=== PATIENT | male | born 1990 | race American Indian/Alaskan Native ===

== ENCOUNTER 2018-09-28 21:38 | Emergency (ER) | payer OTHER ==
--- NOTE | 2018-09-29 01:51 | XRay Report ---
PROCEDURE: XR HAND 3+V LT TECHNIQUE: Left hand radiographs, PA, lateral, and oblique views. HISTORY: thumb injury/pain COMPARISONS: None . FINDINGS: Fracture (s) and/or Dislocation(s): None . Alignment: Normal . Joint space(s): Normal . Soft tissues: Normal . Bone mineralization: Normal . Foreign bodies: None . IMPRESSION: Normal Examination . This document is electronically signed by Aspen Phipps DO., Sep 29 2018 01:49:58 AM ET
[2018-09-29 02:35] VITALS: BP 128/92
[2018-09-29] MEDS ORDERED: TYLENOL PO ONE (03:30)
[2018-09-29] MEDS ORDERED: TYLENOL ONE (03:32)
[2018-09-29] MEDS ORDERED: NORCO 5/325 PO ONE (05:24)
[2018-09-29] MEDS ORDERED: IBUPROFEN PO ONE (05:24)
[2018-09-29] MEDS ORDERED: ZOFRAN ODT PO ONE (05:24)
--- NOTE | 2018-09-29 05:54 | Emergency Department Report ---
ED Upper Extremity Inj HPI - General Chief Complaint: Extremity Injury, Upper Stated Complaint: THUMB INJURY Time Seen by Provider: 09/29/18 05:10 Source: patient Mode of arrival: Ambulatory Limitations: No Limitations - History of Present Illness Initial Comments: Patient is a 28-year-old AA male with no past medical history who presents to the ED with complaint of acute onset persistent severe left hand and thumb pain after the ball hit him on the left hand 2 days ago. Patient states that the pain has worsened in the last 12 hours. Patient denies headache, neck injury, back pain, chest pain, shortness of breath, change in vision, numbness and tingling of left hand or back pain. MD Complaint: Injury to:: hand (LEFT HAND), finger (Left thumb) -: Sudden, days(s) (2) Other Extremity Injury: Hand: Left (left hand and thumb) Other Injuries: none Handedness: right Place: home Severity scale (0 -10): 8 Improves With: none Worsens With: movement of extremity Context: direct blow Associated Symptoms: denies other symptoms. denies: weakness, numbness, neck pain, suspects foreign body, nausea/vomiting, heard/felt popping sensat Treatments Prior to Arrival: cold therapy - Related Data Previous Rx's Medication Instructions Recorded Last Taken Type Cyclobenzaprine [Flexeril] 10 mg PO Q8H PRN #15 tablet 09/29/18 Unknown Rx Ibuprofen [Motrin] 600 mg PO Q8H PRN #20 tablet 09/29/18 Unknown Rx Allergies Allergy/AdvReac Type Severity Reaction Status Date / Time No Known Allergies Allergy Verified 09/28/18 22:01 ED Review of Systems ROS: Stated complaint: THUMB INJURY Other details as noted in HPI Comment: All other systems reviewed and negative Constitutional: no symptoms reported, see HPI. denies: diaphoresis, fever, malaise, weakness Eyes: as per HPI. denies: eye pain, eye discharge, vision change ENT: as per HPI. denies: ear pain, throat pain, dental pain, hearing loss, epistaxis Respiratory: no symptoms reported, see HPI. denies: cough, shortness of breath, SOB with exertion, SOB at rest Cardiovascular: as per HPI. denies: chest pain, palpitations, dyspnea on exertion, orthopnea, edema, syncope Endocrine: no symptoms reported, see HPI. denies: excessive sweating, flushing, intolerance to cold, intolerance to heat, increased hunger, increased urine Gastrointestinal: as per HPI. denies: abdominal pain, nausea, vomiting, diarrhea, constipation, hematemesis Genitourinary: as per HPI. denies: urgency, dysuria, frequency, discharge Musculoskeletal: as per HPI, joint swelling (left thumb pain and mild swelling), arthralgia (left thumb pain). denies: back pain Skin: as per HPI. denies: rash, lesions, change in color, change in hair/nails Neurological: as per HPI. denies: headache, weakness, numbness, paresthesias, confusion, abnormal gait, vertigo Psychiatric: as per HPI Hematological/Lymphatic: as per HPI ED Past Medical Hx - Past Medical History Previous Medical History?: No - Surgical History Past Surgical History?: No - Social History Smoking Status: Current Every Day Smoker Substance Use Type: None - Medications Home Medications: Home Medications Medication Instructions Recorded Confirmed Last Taken Type Cyclobenzaprine [Flexeril] 10 mg PO Q8H PRN #15 tablet 09/29/18 Unknown Rx Ibuprofen [Motrin] 600 mg PO Q8H PRN #20 tablet 09/29/18 Unknown Rx ED Physical Exam - General Limitations: No Limitations General appearance: alert, in no apparent distress - Head Head exam: Present: atraumatic, normocephalic, normal inspection - Eye Eye exam: Present: normal appearance, PERRL, EOMI. Absent: scleral icterus, conjunctival injection, nystagmus, periorbital swelling, periorbital tenderness Pupils: Present: normal accommodation - ENT ENT exam: Present: normal exam, normal orophraynx, mucous membranes moist, TM's normal bilaterally, normal external ear exam - Neck Neck exam: Present: normal inspection, full ROM. Absent: tenderness - Respiratory Respiratory exam: Present: normal lung sounds bilaterally. Absent: respiratory distress, wheezes, rales, rhonchi, chest wall tenderness, accessory muscle use, decreased breath sounds, prolonged expiratory - Cardiovascular Cardiovascular Exam: Present: regular rate, normal rhythm, normal heart sounds. Absent: bradycardia, tachycardia, irregular rhythm - GI/Abdominal GI/Abdominal exam: Present: soft, normal bowel sounds. Absent: tenderness, guarding, rebound, rigid, hyperactive bowel sounds, hypoactive bowel sounds, organomegaly - Rectal Rectal exam: Present: deferred - Extremities Exam Extremities exam: Present: normal inspection, full ROM, tenderness (left thumb and hand tenderness), normal capillary refill. Absent: pedal edema, joint swelling, calf tenderness - Back Exam Back exam: Present: normal inspection, full ROM. Absent: tenderness, CVA tenderness (L), muscle spasm, paraspinal tenderness, vertebral tenderness - Neurological Exam Neurological exam: Present: alert, oriented X3, CN II-XII intact, normal gait, reflexes normal - Psychiatric Psychiatric exam: Present: normal affect - Skin Skin exam: Present: warm, dry, intact. Absent: cyanosis, diaphoretic, erythema, urticaria ED Course Vital Signs 09/28/18 09/29/18 22:03 02:34 Temperature 98.3 F 98.5 F Pulse Rate 80 68 Respiratory 18 18 Rate Blood Pressure 124/84 128/92 O2 Sat by Pulse 99 100 Oximetry - Reevaluation(s) Reevaluation #1: 09/29/18 06:01 Patient is alert and oriented 3 and he is not in distress. Left hand x-ray shows no acute fractures. The patient was treated with pain in the ED and on reevaluation, patient's pain is well controlled. Patient discharged home on pain medications and had his left hand splinted with a left thumb spica and Velcro splint. Patient discharged home on pain medications and advised to follow-up with his primary care physician in 5-7 days for reevaluation. Patient was advised to return to the ED immediately if symptoms get worse. ED Medical Decision Making - Radiology Data Radiology results: report reviewed, image reviewed Left hand x-ray shows no acute fractures or subluxation - Medical Decision Making Patient is alert and oriented 3 and he is not in distress. Left hand x-ray shows no acute fractures. The patient was treated with pain in the ED and on reevaluation, patient's pain is well controlled. Patient discharged home on pain medications and had his left hand splinted with a left thumb spica and Velcro splint. Patient discharged home on pain medications and advised to follow-up with his primary care physician in 5-7 days for reevaluation. Patient was advised to return to the ED immediately if symptoms get worse. - Differential Diagnosis left hand sprain; left thumb sprain, fractured left thumb Critical care attestation.: If time is entered above; I have spent that time in minutes in the direct care of this critically ill patient, excluding procedure time. ED Disposition Clinical Impression: Left thumb sprain Qualifiers: Encounter type: initial encounter Sprain of finger site: interphalangeal joint Qualified Code(s): S63.622A - Sprain of interphalangeal joint of left thumb, initial encounter Sprain of left hand Qualifiers: Encounter type: initial encounter Qualified Code(s): S63.92XA - Sprain of unspecified part of left wrist and hand, initial encounter Disposition: TO HOME OR SELFCARE Is pt being admited?: No Does the pt Need Aspirin: No Condition: Stable Instructions: Finger Sprain (ED), Hand Sprain (ED) Additional Instructions: Take medications with food, drink plenty of fluids and follow up with your primary care physician in 5-7 days for reevaluation. Return to the ED immediately if symptoms get worse. Prescriptions: Cyclobenzaprine [Flexeril] 10 mg PO Q8H PRN #15 tablet PRN Reason: Spasms Ibuprofen [Motrin] 600 mg PO Q8H PRN #20 tablet PRN Reason: Pain [facility] [Primary Care Provider] - 3-5 Days Time of Disposition: 05:58 Print Language: VINCENTIAN
== END 2018-09-29 06:20 | disposition home or self-care (01) ==
LOC: ED 21:38
DX: S63.622A Sprain of interphalangeal joint of left thumb, initial encounter (principal); S63.92XA Sprain of unspecified part of left wrist and hand, initial encounter; F17.200 Nicotine dependence, unspecified, uncomplicated; W22.8XXA Striking against or struck by other objects, initial encounter; Y93.89 Activity, other specified; Y92.89 Other specified places as the place of occurrence of the external cause; Y99.8 Other external cause status
CPT/HCPCS: Q0162